=== PATIENT | female | born 1960 | race Caucasian/White ===

== ENCOUNTER 2023-04-03 11:50 | Day surgery (SDC) | payer BC ==
[2023-03-30 11:58] LABS: BASOPHILS % (AUTO) 0.9 % (0-1); EOSINOPHILS # (AUTO) 0.1 X10'3 (0-0.9); EOSINOPHILS % (AUTO) 2.8 % (0-6); HEMATOCRIT 43.7 % (35.0-45.0); HEMOGLOBIN 14.4 g/dl (12.0-16.0); LYMPHOCYTES # (AUTO) 0.8 X10'3 (1.1-4.8); LYMPHOCYTES % (AUTO) 21.9 % (21-51); MEAN CORPUSCULAR HEMOGLOBIN 27.2 PG (27.0-31.0); MEAN CORPUSCULAR VOLUME 82.4 FL (78-98); MEAN PLATELET VOLUME 7.6 FL (7.4-10.4); MONOCYTES # (AUTO) 0.3 X10'3 (0-0.9); MONOCYTES % (AUTO) 9.6 % (2-12); NEUTROPHILS # (AUTO) 2.3 X10'3 (1.8-7.7); NEUTROPHILS % (AUTO) 64.8 % (42-75); PLATELET COUNT 301 X10'3 (140-440); RED CELL DISTRIBUTION WIDTH 16.5 % (11.5-14.5); WHITE BLOOD COUNT 3.5 X10'3 (4.5-11.0)
[2023-03-30 12:09] LABS: APTT 31 SECONDS (22-32)
[2023-03-30 12:14] LABS: ALBUMIN 3.9 G/DL (3.4-5.0); ANION GAP 10 (8-16); BLOOD UREA NITROGEN 6 MG/DL (7-18); BUN/CREATININE RATIO 8.2 (10.0-20.0); CALCIUM 9.2 MG/DL (8.5-10.1); CHLORIDE 103 MMOL/L (99-107); CHOL/HDL RATIO 2.4 (0.00-4.99); CHOLESTEROL 166 MG/DL (0-200); CREATININE 0.73 MG/DL (0.40-0.90); GLUCOSE 99 MG/DL (70-104); HDL CHOLESTEROL 70 MG/DL (35-60); LDL CHOLESTEROL 83 MG/DL (50-100); SODIUM 141 MMOL/L (135-145); TRIGLYCERIDES 39 MG/DL (20-135); eGFR 81 ML/MIN
[2023-04-03] VITALS (9 sets, daily range): BP systolic 105–127; BP diastolic 52–77
[~2023-04-03] VITALS: Ht 162.6 cm; Wt 61.1 kg
[2023-04-03] MEDS ORDERED: LORazepam 0.5 MG tablet PO PRN (12:10)
[2023-04-03] MEDS ORDERED: diphenhydrAMINE 25mg capsule PO PRN (12:10)
[2023-04-03] MEDS ORDERED: normal saline 1,000 ML IV SCH (12:10)
[2023-04-03] MEDS ORDERED: SACU1TAB PO (13:24)
[2023-04-03] MEDS ORDERED: P-EP-21 PO (13:24)
[2023-04-03] MEDS ORDERED: ASPI-611 PO (13:24)
[2023-04-03] MEDS ORDERED: DAPA10TA PO (13:24)
[2023-04-03] MEDS ORDERED: METO-539 PO (13:24)
[2023-04-03] MEDS ORDERED: SPIR25TA PO (13:24)
[2023-04-03] MEDS ORDERED: LIDOcaine 1% (10mg/ml) 2ml vial ONE (13:58)
[2023-04-03] MEDS ORDERED: nitroGLYCERIN-Tridil 50MG/D5W 250 ML IV ONE (13:58)
[2023-04-03] MEDS ORDERED: fentaNYL/PF 50MCG/1 ML 2ML syringe ONE (13:59)
[2023-04-03] MEDS ORDERED: midazolam 1 mg/ML 2ml injection ONE (13:59)
[2023-04-03] MEDS ORDERED: iohexol 350MG/ML 100ml bottle IV ONE ×2 (13:59→15:07)
[2023-04-03] MEDS ORDERED: heparin 1,000unit/ml 10ml vial 10 ML ONE (13:59)
[2023-04-03] MEDS ORDERED: verapamil 2.5 mg/ml inj IV ONE (13:59)
[2023-04-03] MEDS ORDERED: aspirin 325mg tablet ONE (15:07)
[2023-04-03] MEDS ORDERED: clopidogrel 300mg tablet ONE (15:07)
[2023-04-03] MEDS ORDERED: HYDROcodone/acetaminophen 5mg/325mg tablet PO PRN (15:50)
[2023-04-03] MEDS ORDERED: HYDROcodone/acetaminophen 10/325mg tab PO PRN (15:50)
== END 2023-04-03 18:52 | disposition home or self-care (01) ==
LOC: SSTAY O 11:50
PROVIDERS: ATTEND Student in an Organized Health Care Education/Training Program
DX: R94.39 Abnormal result of other cardiovascular function study (principal); I25.10 Atherosclerotic heart disease of native coronary artery without angina pectoris; I11.0 Hypertensive heart disease with heart failure; I50.9 Heart failure, unspecified; I44.7 Left bundle-branch block, unspecified; Z79.82 Long term (current) use of aspirin; Z79.899 Other long term (current) drug therapy
CPT/HCPCS: 36415; 80048; 80061; 85025; 85610; 85730; 93458; 99152; 99153; A6258; C1725; C1751; C1769; C1874; C9600; J1644; J2250; J3010; J3490; J7030; Q0163; Q9967; A6402; C1894

== ENCOUNTER 2023-08-02 07:57 | Emergency (ER) | payer BC ==
[~2023-08-02] VITALS: Ht 162.6 cm; Wt 61.6 kg
[~2023-08-02 07:57] MED LIST: ASPI-611 PO; DAPA10TA PO; METO-539 PO; P-EP-21 PO; SACU1TAB PO; SPIR25TA PO
[2023-08-02 08:04] VITALS: TEMP 97.8
--- NOTE | 2023-08-02 08:57 | NUR ---
MSE COMPLETED BY REYNALDO OLIVER
[2023-08-02 10:54] VITALS: BP 119/71; PULSE 72; RESP 16; O2SAT 100
--- NOTE | 2023-08-02 14:01 | NUR ---
I AGREE WITH THE ASSESSMENT PER Franco WU LVN
== END 2023-08-02 14:04 | disposition home or self-care (01) ==
LOC: ER 07:57
DX: R00.2 Palpitations (principal); Z79.899 Other long term (current) drug therapy; Z79.82 Long term (current) use of aspirin
CPT/HCPCS: 36415; 71045; 83880; 84484; 93005; 99285